=== PATIENT | male | born 1995 | race Caucasian/White ===

== ENCOUNTER 2018-03-23 08:58 | Emergency (ER) | payer OTHER ==
[~2018-03-23] VITALS: Ht 170.2 cm; Wt 61.2 kg
[~2018-03-23 08:58] MED LIST: CIPROFLOXIN HC2.5 M1 OPHTHALMIC; LIDOCAINE VISC100 M1 SWISH&SPIT; PENICILLIN V P500 MG PO; TRAMADOL 50 MG50 MG PO
[2018-03-23 10:16] VITALS: BP 107/57
== END 2018-03-23 10:17 | disposition home or self-care (01) ==
LOC: M.ERS 08:58
DX: J02.8 Acute pharyngitis due to other specified organisms (principal); F32.9 Major depressive disorder, single episode, unspecified; F17.200 Nicotine dependence, unspecified, uncomplicated; Z90.49 Acquired absence of other specified parts of digestive tract; Z88.1 Allergy status to other antibiotic agents